=== PATIENT | male | born 1965 | race Caucasian/White ===

== ENCOUNTER 2024-03-14 19:46 | Emergency (ER) | payer OTHER, SELFPAY ==
[2024-03-14 19:54] VITALS: BP 127/79; PULSE 98; RESP 15; TEMP 36.8; O2SAT 100
--- NOTE | 2024-03-14 22:32 | ED.GENADULT ---
HPI - General Adult General Chief complaint: Unspecified Stated complaint: G- Tube, terminal cancer, and hospice Time Seen by Provider: 03/14/24 22:24 Source: patient Mode of arrival: ambulatory Limitations: no limitations History of Present Illness HPI narrative: This is a 58-year-old male who is on hospice and presents to the ED via EMS from nursing facility for chief complaint of leaking G-tube. He was sent by his hospice nurse to have the site evaluated. Patient states that the G-tube has been leaking since it was placed 2 weeks ago. He states that his surgeon told them the leaking was expected in that he does have a follow-up appointment with this surgeon this week. States that tube is able to flush and they have been able to use it appropriately. Reports there is some increasing redness around the skin but really he is not having any pain. Denies fevers, chills, nausea, vomiting. Related Data Allergies Allergy/AdvReac Type Severity Reaction Status Date / Time No Known Allergies Allergy Verified 03/14/24 19:47 Review of Systems Review of Systems: All systems as dictated in HPI Exam Narrative: GENERAL: Well-appearing, well-nourished, and in no acute distress. HEAD: Normocephalic, atraumatic. EYES: PERRLA and EOMI. ENT: Nares clear, no rhinorrhea or epistaxis. Mucous membranes moist. Oropharynx without tonsillar hypertrophy exudate or other lesions. NECK: Supple. No adenopathy or masses. CHEST: No respiratory distress. Clear to auscultation. No wheezes rales or rhonchi HEART: Regular rate and rhythm. No murmur heard. Normal peripheral pulses. ABDOMEN: Gastrostomy tube in place. There is beefy red skin surrounding the tube site with satellite lesions. No tenderness. The gauze dressing is saturated with yellow drainage. Soft, nontender, nondistended, normal active bowel sounds. MSK: Normal range of motion. No edema. SKIN: Warm, dry, no rash. NEURO: Alert and oriented x4. No focal deficits. PSYCH: Normal mood and affect. Course Course Emergency Course: Patient is requesting to be discharged. I have been waiting for surgery consult from [facility] for well over an hour. Patient does not want to wait on this consult any longer. Vital Signs Vital signs: Vital Signs Temperature 98.3 F 03/14/24 19:54 Pulse Rate 98 03/14/24 19:54 Respiratory Rate 15 03/14/24 19:54 Blood Pressure 127/79 03/14/24 19:54 Pulse Oximetry 100 03/14/24 19:54 Oxygen Delivery Room Air 03/14/24 19:54 Temperature 98.3 F 03/14/24 19:54 Pulse Rate 88 03/14/24 23:16 Respiratory Rate 19 03/14/24 23:16 Blood Pressure 127/79 03/14/24 19:54 Pulse Oximetry 100 03/14/24 23:16 Oxygen Delivery Room Air 03/14/24 19:54 Medical Decision Making MDM Narrative Medical decision making narrative: This is a 58 yo male who presents to the ED for chief complaint of G-tube leaking since surgical placement nearly 2 weeks ago. He is on hospice and his hospice nurse wanted to have this evaluated. He is not having any pain. Vitals are normal. Exam shows leaking G-tube site, however the G-tube is functioning well otherwise. Appears to have surrounding use infection to the moisture, however it is nontender does not appear bacterial infected. He was given topical nystatin here. While waiting surgical consult [facility], patient has decided that he does not want to stay any longer. He wants to go home and take his regular medications. I offered to order his medications here but he is much preferring to be discharged. This is reasonable since the G-tube is still able to be used. Advise that he follow-up closely with the physician who placed this for definitive management Patient will be discharged in stable condition. Supportive measures discussed and return precautions given. Patient is understanding and agreeable with plan for discharge with PCP follow-up. Vital Signs Vital Signs: Vital Signs Temperature 98.3 F 03/14/24 19:54 Pulse Rate 98 03/14/24 19:54 Respiratory Rate 15 03/14/24 19:54 Blood Pressure 127/79 03/14/24 19:54 Pulse Oximetry 100 03/14/24 19:54 Oxygen Delivery Room Air 03/14/24 19:54 Temperature 98.3 F 03/14/24 19:54 Pulse Rate 88 03/14/24 23:16 Respiratory Rate 19 03/14/24 23:16 Blood Pressure 127/79 03/14/24 19:54 Pulse Oximetry 100 03/14/24 23:16 Oxygen Delivery Room Air 03/14/24 19:54 Discharge Plan Discharge Clinical Impression: Leaking percutaneous endoscopic gastrostomy (PEG) tube Patient Disposition: Hospice - Home Condition: Stable Additional Instructions: Your exam today does show leaking G-tube. The skin around the site does have a yeast infection. Please have hospice care apply antifungal topically. If you have any new or worsening symptoms please return to the ER for further evaluation. Follow-up/Referrals: PHYSICIAN NOT ON STAFF,NONSTAFF [Primary Care Provider] - Stand Alone Forms: [facility] Discharge Time of Disposition: 00:36
[2024-03-14] MEDS: MICONAZOLE NITRATE 2% CREAM 30 GM TUBE 1 APPLIC TOPICAL (23:12)
[2024-03-14 23:16] VITALS: PULSE 88; RESP 19; O2SAT 100
--- NOTE | 2024-03-15 00:55 | PC.NURSE ---
Pt states we need to contact [facility] for them to set up transportation for pt to get home.
--- NOTE | 2024-03-15 01:01 | PC.NURSE ---
Dashawn with Hospice stated he would get transport set up and call back with an ETA
--- NOTE | 2024-03-15 01:27 | PC.NURSE ---
[facility] called stating pt's transport would arrive around 0330.
== END 2024-03-15 04:30 | disposition hospice, home (50) ==
PROVIDERS: Emergency Provider Physician Assistant
DX: K94.23 Gastrostomy malfunction (principal); Y83.3 Surgical operation with formation of external stoma as the cause of abnormal reaction of the patient, or of later complication, without mention of misadventure at the time of the procedure
CPT/HCPCS: 99283; A9270

== ENCOUNTER 2024-04-04 21:41 | HOS | payer OTHER, SELFPAY ==
[2024-04-04 10:15] VITALS: BP 100/76; PULSE 115; RESP 35; TEMP 36.4; O2SAT 85
[2024-04-04 22:35] VITALS: BMI 14.3
[2024-04-04] MEDS: LORazepam INJ (*CRX) 2 MG/ML VIAL 5 MG IV PUSH (22:41)
--- NOTE | 2024-04-04 22:47 | ADMGEN ---
This patient, Rony Herrera, was admitted to 3 Med Surg Room 318-01. Patient/family oriented to hospital policies and general routines including ID bracelet, bed and alarms, visiting hours, pain management, procedures, bathroom and other care routines, personal items, smoking policy, room service/diet, and visiting hours. Information on how to activate the Rapid Response Team has been discussed. Patient/Family are encouraged to report perceived risks to care and to ask questions if they do not understand what they are told or what they should do.
[2024-04-04] MEDS: MORPHINE SULFATE INJ (*CRX) 50 MG in SODIUM CHLORIDE 0.9% IV 95 ML 10 MG IV CONT (23:46)
[2024-04-05] VITALS (7 sets, daily range): BP systolic 74–85; BP diastolic 53–58; PULSE 69–130; RESP 16–24; TEMP 37.6–38.3; O2SAT 72–82
[2024-04-05] MEDS: PHENobarbitaL sodium (*CRX) 130 MG/ML VIAL 60 MG IV PUSH ×5 (00:06→23:22)
[2024-04-05] MEDS: LORazepam INJ (*CRX) 2 MG/ML VIAL IV PUSH ×4 (05:44→23:22)
--- NOTE | 2024-04-05 09:37 | P.HP_ITS ---
H&P: HPI History of Present Illness Date/Time: 04/05/24 09:37 Chief Complaint: Uncontrolled agitation Narrative: This unfortunate 58-year-old gentleman was already on hospice for a diagnosis of head neck cancer. He had had a feeding tube in a semi place. He has lost a great amount of weight and has become more weak. Over last several days he has had increased agitation and confusion. In spite of increasing doses of Ativan and morphine through his G-tube he remained agitated and his was no longer able to care for him at home. He was a danger to her and to himself. He was oriented to person only. Review of Systems Review of Systems: ROS unobtainable: Yes unobtainable due to medical condition PMFSH Past Medical History Medical History (Updated 04/05/24 @ 09:44 by Jose Trinidad MD) Gastrostomy tube in place Head and neck cancer Tracheostomy in place Family History Family History (Updated 04/05/24 @ 09:39 by Jose Trinidad MD) Father No problems noted. Mother No problems noted. Social History Social History (Updated 04/05/24 @ 09:40 by Jose Trinidad MD) Smoking status: Former smoker Tobacco type: cigarettes Alcohol intake: unknown Substance use: unknown Living arrangements: with family Additional living arrangements comments: Resides with Occupation/Education: other Additional occupation/education comments: Disabled Gender identity (if verbalized by the patient): Male Spiritual care concerns: No Meds Home Medications and Allergies Home Medications Medication Instructions Recorded Confirmed Type Unable to Obtain Home Medications 04/04/24 04/04/24 History Allergies Allergy/AdvReac Type Severity Reaction Status Date / Time No Known Allergies Allergy Verified 03/14/24 19:47 Vital Signs Vital Signs - 24 hr 04/04/24 10:15 04/05/24 02:13 04/05/24 08:00 Temperature 97.6 F 99.7 F H Pulse Rate 115 H 130 H 69 Respiratory Rate 35 H 20 Blood Pressure 100/76 85/58 L Pulse Oximetry 85 L 82 L Exam Narrative: Cachectic elderly gentleman appears much older than his stated age like his hospital bed. Oral mucosa moist. Tracheostomy in place. Chest with bilateral coarse breath sounds, normal effort. Heart normal S1 and S2 with regular rate and no audible murmurs. Abdomen scaphoid with G-tube in place and sounds hypoactive. Extremities without edema. Musculoskeletal without gross deformity to visual inspection. Neurologic cranial is symmetric to visual inspection. Psychiatric sleeping soundly and unresponsive to verbal or tactile stimuli. Assessment and Plan Assessment and plan (1) Hospice care: Code(s): Z51.5 - Encounter for palliative care Status: Acute Assessment and Plan: * Meet inpatient hospice criteria due to requiring continuous IV morphine at 5 milligrams/hour along with scheduled phenobarbital 60 mg IV q.6 schedule l orazepam 2 mg IV q.6 hours control of pain and agitation. Medical regimen at home via g-tuge was not controlling his symptoms and he was a danger to himself and to those around him. * PRN palliative regimen ordered. (2) Head and neck cancer: Code(s): C76.0 - Malignant neoplasm of head, face and neck Status: Acute (3) Tracheostomy in place: Code(s): Z93.0 - Tracheostomy status Status: Acute (4) Gastrostomy tube in place: Code(s): Z93.1 - Gastrostomy status Status: Acute
[2024-04-05] MEDS: MORPHINE SULFATE INJ (*CRX) 50 MG in SODIUM CHLORIDE 0.9% IV 95 ML 10 MG IV CONT ×2 (09:55→19:30)
--- NOTE | 2024-04-05 11:48 | PC.NURSE ---
RN did not to trach care because pt wasn't needing it and spoke with provider about changing it to as needed bases since pt is sound asleep
--- NOTE | 2024-04-05 14:15 | PC.NURSE ---
tear drops not given due to pt sleeping
[2024-04-05] MEDS: ACETAMINOPHEN 650 MG SUPPOSITORY RECTAL (20:41)
[2024-04-05] MEDS: ARTIFICIAL TEARS OPHTH SOLN 15 ML BOTTLE 1 DROP EACH EYE (23:23)
--- NOTE | 2024-04-06 21:23 | PM.DDS ---
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 Herrera was admitted to the inpatient hospice service due to uncontrolled terminal agitation related to head and neck cancer. Palliative sedation was initiated. He peacefully. Additional Data Confirmation of as documented by pronouncing clinician: Pupillary Reflex, Palpable Pulses, Response to Stimuli, Heart Tones and Breath Sounds Name of Provider Notified: Dr. Trinidad Time Provider Notified: 01:48 Provider Requests Autopsy: No Family Requests Autopsy: No [employer] Notified: Yes Date [facility] Notified of : 04/06/24 Time [facility] Notified of : 02:00
== END 2024-04-06 01:40 | disposition expired | DRG 951 ==
PROVIDERS: Admitting Provider Internal Medicine; Visit Provider Internal Medicine
DX: Z51.5 Encounter for palliative care (principal); R64 Cachexia; C76.0 Malignant neoplasm of head, face and neck; Z93.1 Gastrostomy status; Z93.0 Tracheostomy status; Z87.891 Personal history of nicotine dependence
CPT/HCPCS: A9270; J2060; J2270; J2560